=== PATIENT | female | born 1960 | race Caucasian/White ===

== ENCOUNTER 2016-11-07 17:24 | Emergency (ER) | payer OTHER ==
[2016-11-07 19:08] VITALS: BP 104/44
== END 2016-11-07 19:09 | disposition home or self-care (01) ==
LOC: ED 17:24
DX: T78.40XA Allergy, unspecified, initial encounter (principal); X58.XXXA Exposure to other specified factors, initial encounter; E11.9 Type 2 diabetes mellitus without complications; E78.5 Hyperlipidemia, unspecified; M19.90 Unspecified osteoarthritis, unspecified site
CPT/HCPCS: J0171; J1200; J2930; J3490